=== PATIENT | female | born 1940 | race Caucasian/White ===

== ENCOUNTER 2020-09-16 10:15 | Inpatient (IN) | payer MEDICARE ==
[~2020-09-16] VITALS: Ht 175.4 cm; Wt 72.7 kg
[2020-09-16 11:36] LABS: BASO % 0.3 % (0.0-2.0); EOS # 0.3 (0.0-0.7); EOS % 3.8 % (0-4.0); GRAN # 4.8 (1.4-6.5); GRAN % 69.9 % (42.2-75.2); HEMATOCRIT 39.6 % (37.0-47.0); HEMOGLOBIN 13.3 g/dl (12.5-16.0); LYMPH # 1.1 (1.2-3.4); LYMPH % 15.6 % (20.0-51.0); MEAN CELL VOLUME 99 fl (80.0-100.0); MEAN CORPUSCULAR HEMOGLOBIN 33 pg (27.0-31.0); MEAN CORPUSCULAR HGB CONC 34 g/dl (33.0-37.0); MEAN PLATELET VOLUME 9.1 fl (7.4-10.4); MONO # 0.7 (0.1-0.6); MONO % 10.1 % (1.7-9.3); PLATELET COUNT 243 K/mm3 (130-400); RED BLOOD COUNT 3.99 M/mm3 (4.10-5.30); REDCELL DISTRIBUTION WIDTH-CV 13.2 % (11.5-14.5)
[2020-09-16 11:58] LABS: INR 1.1 (0.8-3.0); PROTHROMBIN TIME 11.8 SECONDS (9.7-12.8)
[2020-09-16 12:01] LABS: PARTIAL THROMBOPLASTIN TIME 33.2 SECONDS (26.0-37.0)
[2020-09-16] MEDS ORDERED: TENEX2 MG PO (12:01)
[2020-09-16] MEDS ORDERED: SYNTHROID 0.10.15 MG PO (12:01)
[2020-09-16] MEDS ORDERED: ASPIRIN 81M81 MG/TA2 PO (12:02)
[2020-09-16] MEDS ORDERED: LASIX 20MG TABL20 MG PO (12:02)
[2020-09-16] MEDS ORDERED: VITAMIN C500 MG PO (12:03)
[2020-09-16] MEDS ORDERED: CALTRATE 600 +1 TAB PO (12:03)
[2020-09-16] MEDS ORDERED: CENTRUM SILVER1 TAB (12:03)
[2020-09-16 12:04] LABS: ALBUMIN 3.7 gm/dL (3.5-5.0); BILIRUBIN,TOTAL 0.9 mg/dL (0.0-1.0); CALCIUM 9.6 mg/dL (8.4-10.2); CREATININE, serum 0.56 (0.52-1.25); POTASSIUM 3.7 mmol/L (3.4-5.0); TOTAL PROTEIN 6.7 gm/dL (6.4-8.2)
[2020-09-16] MEDS ORDERED: TYLENOL 325MG325 MG PO (12:04)
[2020-09-16 12:29] LABS: AMORPHOUS CRYSTAL Present /uL; MUCOUS Present /lpf; PH 8 (5-8); SQUAMOUS EPITHELIAL 0-2 /hpf; URINE APPEARANCE Cloudy; URINE BACTERIA Rare /hpf; URINE BILIRUBIN Negative (NEGATIVE); URINE BLOOD Negative (NEGATIVE); URINE COLOR Yellow; URINE GLUCOSE Negative (NEGATIVE); URINE KETONE Negative (NEGATIVE); URINE LEUKOCYTE ESTERASE Negative (NEGATIVE); URINE NITRATE Negative (NEGATIVE); URINE PROTEIN(semi-quant) Negative (NEGATIVE); URINE RBC None Seen /hpf; URINE UROBILINOGEN Negative (NEGATIVE); URINE WBC 0-2 /hpf
[2020-09-16 12:54] LABS: COLLECTION METHOD CATHETER
[2020-09-16] MEDS ORDERED: COUMADIN4 MG PO (14:35)
--- NOTE | 2020-09-16 15:00 | NUR ---
Pt recently arrived to the floor from ED. She is alert and oriented with some pain complaints but states she is okay. Tavraez with yellow output. INT to left AC. She does have an restricted extremity on the right arm with band on. Dr Curry has been in to see patient, stated surgery not until tomorrow and general diet okay. Gave her some ice water. Report given to COREY Navarrete
[2020-09-16 15:41] VITALS: BP 116/48; PULSE 76; TEMP 97.9
--- NOTE | 2020-09-16 17:23 | NUR ---
Patient laying in bed, Pillow next to right leg. Denies pain and discomfort. Patient ate dinner and tolerated well. No further needs expressed from the patient. Call light within reach
--- NOTE | 2020-09-16 19:31 | NUR ---
END OF SHIFT REPORT RECEIVED FROM DAY SHIFT NURSE. PT RESTING IN BED WATCHING TV. VOICES NO C/O PAIN IF SHE DOES NOT MOVE. SCD'S ON BILAT LE. CALL LIGHT IN REACH.
[2020-09-16 20:00] VITALS: BP 118/50; PULSE 80; TEMP 98
--- NOTE | 2020-09-16 21:41 | NUR ---
SHIFT ASSESSMENT COMPLETE. PT A&O X4. STATES SHE HAS NO PAIN WHILE LYING QUIETLY IN BED AND IT DOES INCREASE WITH MOVEMENT. HR REGULAR, LS CTA, PRITEO TO DD WITH CLEAR, YELLOW URINE. SCD'S ON BILAT. IV SITE FLUSHED WITH NO PROBLEMS. BED ALARM ON AND CALL LIGHT IN REACH.
[2020-09-17] VITALS (12 sets, daily range): BP systolic 108–131; BP diastolic 45–72; PULSE 71–105; TEMP 97.5–98.3
[2020-09-17 06:42] LABS: BASO % 0.4 % (0.0-2.0); EOS # 0.2 (0.0-0.7); EOS % 4.2 % (0-4.0); GRAN # 3.6 (1.4-6.5); GRAN % 62.4 % (42.2-75.2); HEMATOCRIT 37.7 % (37.0-47.0); HEMOGLOBIN 12.7 g/dl (12.5-16.0); LYMPH # 1.2 (1.2-3.4); LYMPH % 20.4 % (20.0-51.0); MEAN CELL VOLUME 100 fl (80.0-100.0); MEAN CORPUSCULAR HEMOGLOBIN 34 pg (27.0-31.0); MEAN CORPUSCULAR HGB CONC 34 g/dl (33.0-37.0); MEAN PLATELET VOLUME 9.3 fl (7.4-10.4); MONO # 0.7 (0.1-0.6); MONO % 11.9 % (1.7-9.3); PLATELET COUNT 239 K/mm3 (130-400); RED BLOOD COUNT 3.77 M/mm3 (4.10-5.30); REDCELL DISTRIBUTION WIDTH-CV 13.3 % (11.5-14.5)
[2020-09-17 06:53] LABS: CALCIUM 9.3 mg/dL (8.4-10.2); CREATININE, serum 0.58 (0.52-1.25); POTASSIUM 3.7 mmol/L (3.4-5.0)
--- NOTE | 2020-09-17 07:32 | NUR ---
END OF SHIFT REPORT GIVEN TO DAY NURSE. PT HAS HAD 2MG MORPHINE X 3 THRU THE NIGHT. REQUEST HER SCD'S BE TAKEN OFF AROUND MIDNIGHT. REPOSITION FROM BACK TO RIGHT SIDE. REFUSES TO BE TURNED TO LEFT SIDE. CALL LIGHT IN REACH. INT FLUSHES WELL IN R AC.
--- NOTE | 2020-09-17 07:51 | NUR ---
PT TO PERIOP AT THIS TIME WITH FLORECITA AIX ARCHITECT. CONSENT SIGHNED ON CHART.
--- NOTE | 2020-09-17 08:47 | NUR ---
PT CURRENTLY IN SURGERY.
--- NOTE | 2020-09-17 12:08 | NUR ---
PT TO ROOM 325 PER BED WITH REPORT FROM FLORECITA NICOLE PACU @1200. PT IS A/O X3 VSS, LUNGS CTA, BOWEL SOUNDS PRESENT. DRESSING TO RIGHT HIP CDI WITH AQUACEL OVER INCISIONS. PT DENIES PAIN OR NEEDS AT THIS TIME.
--- NOTE | 2020-09-17 12:19 | NUR ---
PT SATS DROPPING BELOW 90 ON ROOM AIR WHEN DOZING OFF. PLACED PT ON 2L PNC AND SATS LOW TO MID 90'S.
--- NOTE | 2020-09-17 19:25 | NUR ---
PT IN BED. COMPLAINS OF RT HIP PAIN 01/21. OXYCODONE 10MG PO GIVEN WELL SCHEDULED HS MED. ICE PACK REPLACED TO RT HIP. WEARING OXYGEN AT 1L/NC. HAD ABDUCTOR WEDGE IN PLACE. PRIETO WITH YELLOW URINE. HEELS FLOATED. SL TO LEFT AC, FLUSHES WELL.
[2020-09-18 00:02] VITALS: BP 125/53; PULSE 79; TEMP 98.4
[2020-09-18 04:14] VITALS: BP 124/47; PULSE 77; TEMP 98.2
--- NOTE | 2020-09-18 05:37 | NUR ---
MEDICATED WITH OXYCODONE 10MG PO FOR PAIN TO RIGHT HIP. ICE PACK REPLACED. LAST DOSE OF IV ANTIBIOTIC GIVEN AT THIS TIME.
[2020-09-18 06:35] LABS: BASO % 0.2 % (0.0-2.0); EOS % 0.2 % (0-4.0); GRAN # 8.4 (1.4-6.5); GRAN % 76.1 % (42.2-75.2); HEMOGLOBIN 11.9 g/dl (12.5-16.0); LYMPH # 1.1 (1.2-3.4); LYMPH % 10.4 % (20.0-51.0); MEAN CELL VOLUME 100 fl (80.0-100.0); MEAN CORPUSCULAR HEMOGLOBIN 34 pg (27.0-31.0); MEAN CORPUSCULAR HGB CONC 34 g/dl (33.0-37.0); MEAN PLATELET VOLUME 9.4 fl (7.4-10.4); MONO # 1.4 (0.1-0.6); MONO % 12.8 % (1.7-9.3); PLATELET COUNT 269 K/mm3 (130-400); RED BLOOD COUNT 3.55 M/mm3 (4.10-5.30); REDCELL DISTRIBUTION WIDTH-CV 13.4 % (11.5-14.5)
[2020-09-18 06:37] LABS: CALCIUM 9.4 mg/dL (8.4-10.2); CREATININE, serum 0.55 (0.52-1.25); POTASSIUM 4.2 mmol/L (3.4-5.0)
[2020-09-18 06:52] LABS: HEMATOCRIT 35.5 % (37.0-47.0)
[2020-09-18 07:52] VITALS: BP 111/53; PULSE 99; TEMP 98.3
--- NOTE | 2020-09-18 09:15 | NUR ---
PT UP TO RECLINER THIS AM WITH THERAPY. PT EATING AND DRINKING WELL, WEANED OF O2 THIS AM. DRESSING TO RIGHT HIP CDI. VSS, AM MEDSGIVEN ORDERED. PAIN CONTROLLED WITH PO MEDS.
--- NOTE | 2020-09-18 11:20 | NUR ---
SW met with patient to complete intake. Patient states that she lives in [place] with her Tolu [phone] and daughter Healther, daughter has same number patient states. Patient provides that she utilizes a walker at home and recieves any assistance she needs from spouse. Patient states that her PCP is Dr. Hernandez of [place], pharmacy is [facility] and she is able to afford her medications. Patient states that her DP- documenatation is with her electric organ assembler, but was unable to recall the name of agency in which it is placed. Patient provides that she will be going to rehab up on discharge [place]. SW will continue to follow.
[2020-09-18 11:51] VITALS: BP 119/67; PULSE 92; TEMP 97.5
[2020-09-18 15:07] VITALS: BP 124/49; PULSE 88; TEMP 98.7
--- NOTE | 2020-09-18 20:48 | NUR ---
PT IN BED, COMPLAINS OF NAUSEA. TAKES HS MEDS. DOSE OF ZOFRAN 4MG IV GIVEN. IV SITE TO LEFT AC LEAKING AND DC'D AT THIS TIME. IS ALERT AND ORIENTED X4. HAS PRIETO TO BSD WITH YELLOW URINE. ICE PACK TO RIGHT HIP, AQUACEL DRSG INTACT.
[2020-09-18 21:34] VITALS: BP 132/51; PULSE 96; TEMP 99
--- NOTE | 2020-09-19 | NUR ---
Medicated with Oxycodone 10mg and Tylenol 650mg po for rt hip pain and headache.
[2020-09-19 00:27] VITALS: BP 128/53; PULSE 99; TEMP 98.4
[2020-09-19 04:00] VITALS: BP 113/65; PULSE 100; TEMP 98.7
--- NOTE | 2020-09-19 04:31 | NUR ---
NO FURTHER COMPLAINTS OF NAUSEA.
[2020-09-19 06:26] LABS: BASO % 0.2 % (0.0-2.0); EOS # 0.1 (0.0-0.7); EOS % 0.6 % (0-4.0); GRAN # 7.5 (1.4-6.5); GRAN % 73.7 % (42.2-75.2); HEMOGLOBIN 11.5 g/dl (12.5-16.0); LYMPH # 1.1 (1.2-3.4); MEAN CELL VOLUME 99 fl (80.0-100.0); MEAN CORPUSCULAR HEMOGLOBIN 33 pg (27.0-31.0); MEAN CORPUSCULAR HGB CONC 33 g/dl (33.0-37.0); MEAN PLATELET VOLUME 9.4 fl (7.4-10.4); MONO # 1.4 (0.1-0.6); MONO % 14.1 % (1.7-9.3); PLATELET COUNT 252 K/mm3 (130-400); RED BLOOD COUNT 3.49 M/mm3 (4.10-5.30); REDCELL DISTRIBUTION WIDTH-CV 13.6 % (11.5-14.5)
[2020-09-19 06:29] LABS: INR 1.1 (0.8-3.0); PROTHROMBIN TIME 12.4 SECONDS (9.7-12.8)
[2020-09-19 06:34] LABS: HEMATOCRIT 34.5 % (37.0-47.0)
[2020-09-19 06:36] LABS: CALCIUM 9.4 mg/dL (8.4-10.2); CREATININE, serum 0.54 (0.52-1.25); POTASSIUM 3.8 mmol/L (3.4-5.0)
--- NOTE | 2020-09-19 08:33 | NUR ---
Pt doing well at this time. She is sitting up in the chair. Reports pain 5/10 at this time to her right hip. Pain medication given. She has had and tolerated a general breakfast. No needs at this time, will continue to monitor
[2020-09-19 09:11] VITALS: BP 112/43; PULSE 97; TEMP 97.7
--- NOTE | 2020-09-19 10:18 | NUR ---
Initial visit; Patient thanked [facility] for looking in on her, visiting and keeping her in [facility]'s prayers. [facility] will follow up.
[2020-09-19 12:23] VITALS: BP 120/52; PULSE 100; TEMP 98
--- NOTE | 2020-09-19 13:02 | NUR ---
Pt continues to do well. She is back in bed, has had lunch, some pain complaints but states it is better when at rest. Tavarez discontinued. No needs, will continue to monitor
--- NOTE | 2020-09-19 14:14 | NUR ---
Oral Communication Instructor faxed referral to Masha at [facility] and Masha advised they are able to accept. JC collaborated with Hospitalist who advised she would be ready for discharge tomorrow. JC met with patient and patient's , Tolu about transportation. Tolu states transport by private car is not an option. JC explained that EMS transport would be an out of pocket cost, not covered by insurance. Patient and Edward state they will private pay for cost of EMS transport. JC contacted Lucius, Anchor Operator at [facility] who will email JC estimated cost, ABN, and other transfer paperwork to be completed tomorrow.
--- NOTE | 2020-09-19 17:20 | NUR ---
Assisted pt to the commode. She did well with one assist. Some pain complaints with movement, but stated overall she felt well. She was able to void, no other needs, call light within reach, will continue to monitor
[2020-09-19 17:23] VITALS: BP 131/65; PULSE 108; TEMP 98.7
--- NOTE | 2020-09-19 19:56 | NUR ---
Up to BSC with one assist, gait belt and walker. Transfers slow and steady. DRSG to rt hip rolled up, removed at this time. Pt voids and assisted to bed. New Aquacel drsg applied after in bed. Noted bruising to left hip/leg.
[2020-09-19 20:03] VITALS: BP 120/55; PULSE 104; TEMP 98.1
[2020-09-20 00:18] VITALS: BP 119/61; PULSE 93; TEMP 98.2
--- NOTE | 2020-09-20 03:18 | NUR ---
UP TO BSC, VOIDS AND BACK TO BED. TAKES OXYCODONE 10MG PO FOR RT HIP PAIN.
[2020-09-20 04:21] VITALS: BP 130/61; PULSE 95; TEMP 98.4
--- NOTE | 2020-09-20 07:17 | NUR ---
Shift assessment complete. Pt resting in bed. HR is regular. AP 92bpm, regular. Right hip drsg CDI. Ice pack to right hip. CMS checks WNL. SCD's on to BLE. Pt denies c/o pain with discomfort in the right hip.
[2020-09-20 07:34] LABS: BASO % 0.3 % (0.0-2.0); EOS # 0.2 (0.0-0.7); EOS % 1.8 % (0-4.0); GRAN # 6.8 (1.4-6.5); GRAN % 71.1 % (42.2-75.2); HEMOGLOBIN 11.1 g/dl (12.5-16.0); LYMPH # 1.3 (1.2-3.4); LYMPH % 13.8 % (20.0-51.0); MEAN CELL VOLUME 99 fl (80.0-100.0); MEAN CORPUSCULAR HEMOGLOBIN 33 pg (27.0-31.0); MEAN CORPUSCULAR HGB CONC 34 g/dl (33.0-37.0); MEAN PLATELET VOLUME 9.5 fl (7.4-10.4); MONO # 1.2 (0.1-0.6); MONO % 12.3 % (1.7-9.3); PLATELET COUNT 251 K/mm3 (130-400); RED BLOOD COUNT 3.33 M/mm3 (4.10-5.30); REDCELL DISTRIBUTION WIDTH-CV 13.5 % (11.5-14.5)
[2020-09-20 07:37] VITALS: BP 119/54; PULSE 90; TEMP 98.5
[2020-09-20 07:37] LABS: INR 1.3 (0.8-3.0); PROTHROMBIN TIME 14.8 SECONDS (9.7-12.8)
[2020-09-20 07:39] LABS: HEMATOCRIT 32.9 % (37.0-47.0)
[2020-09-20 07:46] LABS: CREATININE, serum 0.44 (0.52-1.25); POTASSIUM 3.5 mmol/L (3.4-5.0)
--- NOTE | 2020-09-20 08:48 | NUR ---
Pt doing well this morning. She has been up to the chair, but is now back in bed. Pain at tolerable level. She is aware that she will be going to [facility] today, not sure of the time. Lung sounds clear, heart rate regular although tachy. Bowel sounds present all 4 quadrants, has not had a bowel movement although she feels as if she is going to. She has had breakfast, no other needs, call light within reach, will continue to monitor
[2020-09-20] MEDS ORDERED: ROXICODONE 55 MG/TAB PO (08:54)
[2020-09-20] MEDS ORDERED: LOVENOX 6060 MG/0.6 SQ (08:59)
--- NOTE | 2020-09-20 10:01 | NUR ---
Follow-up visit; Patient thanked Marketing Programs Specialist for looking in on her and wishing her good health and God's blessings as she departs from the hospital.
[2020-09-20 10:52] VITALS: BP 119/54; PULSE 90; TEMP 98.5
[2020-09-20 11:02] VITALS: BP 124/65; PULSE 98; TEMP 97.8
--- NOTE | 2020-09-20 11:16 | NUR ---
Report called to [facility] pt leaving now via EMS
--- NOTE | 2020-09-20 12:34 | NUR ---
Patient ready to be discharged today. Bail Bonding Agent contacted Masha at [facility] who advised they can accept today. JC coordinated with Colby at [facility] and set transport time for 1100. JC placed completed EMS forms on patient's chart. JC obtained patient signature on ABN and placed copy in chart. JC provided transport time to [facility] [place], patient, patient's Edemma, and RN. Accepting physician is Dr. Hernandez and JC provided dr to dr beasley to Hospitalist. JC faxed discharge orders. Patient to discharge to [facility] today at 1100.
== END 2020-09-20 11:17 | disposition swing bed (61) | DRG 522 ==
LOC: COL.ER 10:15 → SURG 11:59
PROVIDERS: Emergency Medicine; Orthopaedic Surgery; ADMIT Student in an Organized Health Care Education/Training Program
PROC: 0SRR0J9 Replacement of Right Hip Joint, Femoral Surface with Synthetic Substitute, Cemented, Open Approach (ICD-10-PCS; principal; 2020-09-17 09:00)
DX: S72.031A Displaced midcervical fracture of right femur, initial encounter for closed fracture (principal); E03.9 Hypothyroidism, unspecified; I45.10 Unspecified right bundle-branch block; I10 Essential (primary) hypertension; W19.XXXA Unspecified fall, initial encounter; Y92.009 Unspecified place in unspecified non-institutional (private) residence as the place of occurrence of the external cause; Z79.82 Long term (current) use of aspirin; Z86.711 Personal history of pulmonary embolism; Z91.81 History of falling; Z99.3 Dependence on wheelchair
CPT/HCPCS: 99222-AI; 99232-AI; 99239; A9284; C1713; C1776; J0690; J1100; J1650; J2250; J2270; J2405; J2704; J3010; J7120